=== PATIENT | female | born 1970 | race Two or more races ===

== ENCOUNTER 2024-10-30 14:11 | Emergency (ER) | payer OTHER ==
[~2024-10-30] VITALS: Ht 165.1 cm; Wt 83.9 kg
[2024-10-30 18:01] LABS: HEMATOCRIT 45.4 % (36.0-45.00); HEMOGLOBIN 15.1 g/dL (12.0-15.00); MEAN CELL VOLUME 88.9 fL (80.00-100.00); MEAN CORPUSCULAR HEMOGLOBIN 29.7 pg (27.00-32.0); MEAN CORPUSCULAR HGB CONC 33.4 g/dl (32.0-36.0); PLATELET COUNT 171 K/uL (150-450); RED BLOOD COUNT 5.11 M/uL (4.00-6.00); RED CELL DISTRIBUTION WIDTH 13.8 % (11.5-14.5)
[2024-10-30 18:30] LABS: ALBUMIN 4.4 gm/dL (3.4-5.0); BILIRUBIN TOTAL 0.59 mg/dL (0.3-1.2); CREATININE SERUM 0.7 mg/dL (0.55-1.02); GFR 86.56; POTASSIUM 3.88 mEq/L (3.5-5.1); TOTAL PROTEIN 8.4 gm/dL (6.4-8.2)
[2024-10-30] MEDS ORDERED: AMOX-CLAV 875-1 EACH PO (21:33)
== END 2024-10-30 21:36 | disposition home or self-care (01) ==
LOC: ER 14:14
PROVIDERS: Preventive Medicine Public Health & General Preventive Medicine
DX: M79.641 Pain in right hand (principal)

== ENCOUNTER 2024-10-31 15:09 | Outpatient (CLI) | payer OTHER ==
[~2024-10-31 15:09] MED LIST: AMOX-CLAV 875-1 EACH PO
== END 2024-10-31 16:33 | disposition home or self-care (01) ==
LOC: LAB 15:09
PROVIDERS: ATTEND Specialist
DX: L02.91 Cutaneous abscess, unspecified (principal)

== ENCOUNTER 2025-04-30 14:04 | Outpatient (CLI) | payer OTHER | END 2025-04-30 14:16 | disposition home or self-care (01) | LOC: LAB 14:04 | PROVIDERS: ATTEND Specialist | DX: L02.91 Cutaneous abscess, unspecified (principal) ==